=== PATIENT | female | born 1970 | race American Indian/Alaskan Native ===

== ENCOUNTER 2021-11-15 09:06 | Emergency (ER) | payer OTHER ==
[2021-11-15] MEDS ORDERED: ASPIRIN 325 MG TAB PO ONE (09:13)
[2021-11-15 09:59] LABS: Basophils % (Auto) 0.3 % (0.0-1.8); Eosinophils # (Auto) 0.2 K/mm3 (0.0-0.4); Eosinophils % (Auto) 1.9 % (0.0-4.3); Hematocrit 36.9 % (30.3-42.9); Hemoglobin 11.9 gm/dl (10.1-14.3); Lymphocytes # (Auto) 2.5 K/mm3 (1.2-5.4); Lymphocytes % (Auto) 30.5 % (13.4-35.0); Mean Corpuscular HGB Conc 32 % (30-34); Mean Corpuscular Volume 88 fl (79-97); Monocytes # (Auto) 0.5 K/mm3 (0.0-0.8); Monocytes % (Auto) 5.6 % (0.0-7.3); Platelet Count 377 K/mm3 (140-440); Red Blood Count 4.18 M/mm3 (3.65-5.03); Red Cell Distribution Width 13.6 % (13.2-15.2)
[2021-11-15 10:08] LABS: Alanine Aminotransferase 15 units/L (7-56); Albumin 4.1 g/dL (3.9-5); Blood Urea Nitrogen 11 mg/dL (7-17); Calcium 9.3 mg/dL (8.4-10.2); Hemolysis Index 3
[2021-11-15 10:12] LABS: BUN/Creatinine Ratio 18
--- NOTE | 2021-11-15 10:21 | XRay Report ---
CHEST 2 VIEWS INDICATION / CLINICAL INFORMATION: chest pain. COMPARISON: None available. FINDINGS: SUPPORT DEVICES: None. HEART / MEDIASTINUM: No significant abnormality. LUNGS / PLEURA: No significant pulmonary or pleural abnormality. No pneumothorax. ADDITIONAL FINDINGS: No significant additional findings. IMPRESSION: 1. No acute findings. Signer Name: Chris Terrell MD Signed: 11/15/2021 10:17 AM Workstation Name: [id number]
[2021-11-15 14:17] VITALS: BP 139/79
[2021-11-15] MEDS ORDERED: KETOROLAC 10 MG TAB PO ONE (14:31)
--- NOTE | 2021-11-15 14:33 | Emergency Department Report ---
ED Chest Pain HPI - General Chief Complaint: Chest Pain Stated Complaint: CHEST PAIN/HEADACHE/DIZZY Time Seen by Provider: 11/15/21 14:12 Source: patient Mode of arrival: Ambulatory Limitations: No Limitations - History of Present Illness Initial Comments: 51-year-old black female with no medical history presents to the emergency department for evaluation of 2-month history of intermittent chest pain, dizziness, weakness, and headache. She states that about a month ago she was hospitalized with elevated blood pressure and blood glucose. She states that she received treatment in the ED and was discharged home but has not followed up with her primary care provider. She states that pain has been worse over the past couple of days and is 7 out of 10. She denies shortness of breath, nausea, vomiting, and diaphoresis. She states that she has not taken any medication for her symptoms. MD Complaint: chest pain -: Gradual, month(s) (2) Onset: during rest Pain Location: left chest Pain Radiation: none Severity scale (0 -10): 7 Quality: aching Consistency: intermittent Worsens With: palpation re: denies: nausea, vomting, diaphoresis, dyspnea, sense of impending doom Other Symptoms: denies: cough, fever, syncope, rash, acid taste in mouth, leg swelling, palpitations, burping Treatments Prior to Arrival: none Aspirin use within the Past 7 Days: (0) No - Related Data On Oral Contraceptives: No Allergies Allergy/AdvReac Type Severity Reaction Status Date / Time No Known Allergies Allergy Verified 11/15/21 09:10 Heart Score - HEART Score History: Slightly suspicious EKG: Normal Age: 45-65 Risk factors: 1-2 risk factors Troponin: < normal limit HEART Score: 2 - EKG Read Time Time EKG Completed: 10:18 EKG Read Time: 10:25 - Critical Actions Critical Actions: 0-3 pts:0.9-1.7%risk of adverse cardiac event.Candidate for discharge ED Review of Systems ROS: Stated complaint: CHEST PAIN/HEADACHE/DIZZY Other details as noted in HPI Comment: All other systems reviewed and negative Constitutional: weakness. denies: chills, diaphoresis, fever, malaise Eyes: denies: vision change ENT: denies: congestion Respiratory: cough. denies: shortness of breath, SOB with exertion, SOB at re st, stridor, wheezing Cardiovascular: chest pain. denies: palpitations, dyspnea on exertion, orthopnea, edema, syncope, paroxysmal nocturnal dyspnea Gastrointestinal: denies: abdominal pain, nausea, vomiting, diarrhea, hematemesis, melena, hematochezia Musculoskeletal: denies: back pain, joint swelling, arthralgia, myalgia Skin: denies: rash, lesions, change in color, change in hair/nails, pruritus Neurological: headache, weakness. denies: numbness, paresthesias, confusion, abnormal gait, vertigo Psychiatric: denies: anxiety Hematological/Lymphatic: denies: easy bleeding ED Physical Exam - General Limitations: No Limitations General appearance: alert, in no apparent distress - Head Head exam: Present: atraumatic, normocephalic - Eye Eye exam: Present: normal appearance. Absent: conjunctival injection - Neck Neck exam: Present: normal inspection, full ROM. Absent: tenderness, lymphadenopathy - Respiratory Respiratory exam: Present: normal lung sounds bilaterally, chest wall tenderness. Absent: respiratory distress, wheezes, rales, rhonchi, stridor - Cardiovascular Cardiovascular Exam: Present: regular rate, normal heart sounds - GI/Abdominal GI/Abdominal exam: Present: soft, normal bowel sounds. Absent: distended, tenderness, rebound, rigid - Extremities Exam Extremities exam: Present: normal inspection, full ROM, normal capillary refill. Absent: tenderness, pedal edema, joint swelling, calf tenderness - Back Exam Back exam: Present: normal inspection. Absent: CVA tenderness (R), CVA tender ness (L), vertebral tenderness - Neurological Exam Neurological exam: Present: alert, oriented X3, normal gait - Psychiatric Psychiatric exam: Present: normal affect, normal mood - Skin Skin exam: Present: warm, dry, intact, normal color ED Course Vital Signs 11/15/21 11/15/21 09:11 14:15 Temperature 98.3 F 98.4 F Pulse Rate 75 79 Respiratory 16 20 Rate Blood Pressure 160/118 139/79 [Left] O2 Sat by Pulse 97 100 Oximetry ED Medical Decision Making - Lab Data Result diagrams: 11/15/21 09:22 11/15/21 09:22 - EKG Data EKG shows normal: sinus rhythm Rate: normal - EKG Data Interpretation: no acute changes - Radiology Data Radiology results: report reviewed, image reviewed Chest x-ray: FINDINGS: SUPPORT DEVICES: None. HEART / MEDIASTINUM: No significant abnormality. LUNGS / PLEURA: No significant pulmonary or pleural abnormality. No pneumothorax. ADDITIONAL FINDINGS: No significant additional findings. IMPRESSION: 1. No acute findings. - Medical Decision Making 51-year-old black female with no medical history presents to the emergency department for evaluation of 2-month history of intermittent chest pain, dizziness, weakness, and headache. She states that about a month ago she was hospitalized with elevated blood pressure and blood glucose. She states that she received treatment in the ED and was discharged home but has not followed up with her primary care provider. She states that pain has been worse over the past couple of days and is 7 out of 10. She denies shortness of breath, nausea, vomiting, and diaphoresis. She states that she has not taken any medication for her symptoms. EKG without any acute ischemic changes noted, troponin negative x2, chest x-ray without any acute abnormalities noted, and heart score of 2. Patient noted to have chest wall tenderness on exam, so she will be treated with one-time dose of Toradol. Patient still complaining of headache, so she will be given one-time dose of Fioricet for headache. Blood pressure improved. She was advised to monitor and record blood pressure readings and follow-up with her primary care provider for possible treatment for hypertension. She is advised to follow-up with cardiology for further evaluation and management of intermittent chest pain. She is advised to follow-up in the emergency department for any concer brigida symptoms. She verbalizes understanding of and agreement with plan of care. Critical care attestation.: If time is entered above; I have spent that time in minutes in the direct care of this critically ill patient, excluding procedure time. ED Disposition Clinical Impression: Chest pain Qualifiers: Chest pain type: unspecified Qualified Code(s): R07.9 - Chest pain, unspecified Disposition: HOME / SELF CARE / HOMELESS Is pt being admited?: No Does the pt Need Aspirin: No Condition: Stable Instructions: Chest Wall Pain, [id number], Nonspecific Chest Pain, Adult Additional Instructions: Follow-up with primary care provider for further evaluation and management. Return to the emergency department as needed. Referrals: AR KELLY MD [Staff Physician] - 3-5 Days DEANA HIGGINS MD [Staff Physician] - 3-5 Days Forms: Work/School Release Form(ED) Time of Disposition: 14:33
[2021-11-15] MEDS ORDERED: BUTALB/ACETAMINOPHEN/CAFFEINE TAB PO ONE (14:43)
== END 2021-11-15 15:00 | disposition home or self-care (01) ==
LOC: ED 09:06
DX: R07.9 Chest pain, unspecified (principal)
CPT/HCPCS: 36415; 71046; 80053; 84484; 85025; 93005; 99283; 99284